=== PATIENT | male | born 1945 | race Caucasian/White ===

== ENCOUNTER 2018-10-15 03:09 | Emergency (ER) | payer OTHER ==
[~2018-10-15] VITALS: Ht 188 cm; Wt 80.3 kg
[2018-10-15 03:15] VITALS: BP 138/80
--- NOTE | 2018-10-15 03:15 | NUR ---
ED Nurse Note: Patient brought in by ambulance complaining of wounds, alida states that this has been an on going issue for the past 10 years, patient presents with 3 wounds, 1 on the lower right buttocks, 1 on the left lower buttocks, and one beneath his scrotum, the wounds are skin tears and is non draining. patient reports of 7/10 pain. patient is alert and oriented x4, ambulatory with a steady gait, VSS
--- NOTE | 2018-10-15 03:28 | Emergency Room Report ---
History of Present Illness General Chief Complaint: Wound Recheck/Suture Removal Source: Patient Present Illness HPI Patient is a 73-year-old male presented after increased discomfort to his perineal area. 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 Patient reports having increased discomfort and itchiness to the area. Patient had not been having any fever. He denies any other current complaints. Patient has not been febrile. He is normally followed at the [facility]. Patient presented by EMS. He denies any difficulty with breathing. Allergies: Coded Allergies: No Known Allergies (Unverified , 10/15/18) Patient History Past Medical History: see triage record Reviewed Nursing Documentation: PMH: Agreed; PSxH: Agreed Nursing Documentation-PMH Hx Neurological Problems: Yes - celluitis Review of Systems All Other Systems: negative except mentioned in HPI Physical Exam Vital Signs Date Time Temp Pulse Resp B/P (MAP) Pulse Ox O2 Delivery O2 Flow Rate FiO2 10/15/18 03:12 98.8 74 18 94 Room Air Sp02 EP Interpretation: reviewed, normal General Appearance: normal inspection, well appearing, alert, GCS 15, Chronically Ill Head: atraumatic ENT: normal ENT inspection, hearing grossly normal, normal voice Neck: normal inspection, full range of motion, supple, no bony tend Respiratory: normal inspection, lungs clear, normal breath sounds, no respiratory distress, no retraction, no wheezing Cardiovascular #1: regular rate, rhythm, no edema Gastrointestinal: normal inspection, normal bowel sounds, non tender, soft, no guarding, no hernia Genitourinary: no CVA tenderness Musculoskeletal: normal inspection, back normal, normal range of motion Neurologic: normal inspection, alert, oriented x3, responsive, 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 Germain, the Treating physician, has assessed whether the patient is alert and oriented to person, place and time and has determined that the patient is clinically stable for discharge. Diagnostic Impression: Primary Impression: Decubitus ulcer ER Course . Patient presented for wound check. Differential diagnosis include was not limited to cellulitis, abscess, among others. Patient has a benign exam and does not appear to require any further imaging or laboratory testing at this time. 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 Patient's wounds were irrigated and dressed with bacitracin ointment. He was given prescription for Keflex. Patient's wound did not appear to be definitely infected however given the open nature of the wounds patient's antibiotic prophylaxis seems reasonable. There is no significant bleeding noted. Patient was well-developed advised to follow- up with his primary care physician for recheck of the wound patient will likely require further evaluation and treatment. Last Vital Signs Date Time Temp Pulse Resp B/P (MAP) Pulse Ox O2 Delivery O2 Flow Rate FiO2 10/15/18 03:12 98.8 74 18 94 Room Air Status: improved Disposition: HOME, SELF-CARE Condition: Stable Scripts Cephalexin* (KEFLEX*) 500 Mg Capsule 500 MG ORAL EVERY 6 HOURS, #28 CAP Prov: Lawrence Germain MD 10/15/18 Bacitracin Zinc* (BACITRACIN ZINC*) 1 Each Packet 1 APPLIC TOPIC THREE TIMES A DAY, #30 PACKET Prov: Lawrence Germain MD 10/15/18 Lawrence Germain MD October 15, 2018 03:28
[2018-10-15] MEDS ORDERED: Bacitracin Oint UD TOPIC ONE ×2 (03:30→04:13)
[2018-10-15] MEDS ORDERED: BACITRACIN ZIN1 EACH TOPIC (03:49)
[2018-10-15] MEDS ORDERED: CEPHALEXIN500 MG ORAL (03:49)
--- NOTE | 2018-10-15 04:00 | NUR ---
Homeless Discharge: Patient is being discharged from medical care. Awake, alert and oriented x4. After care instructions, including referral to community resources were given. Patient verbalized understanding of After care instructions; at this time patient does not request medications, equipment or placement. Patient signed patient consent in the medical record for patient destination upon discharge. All medical devices such as IV and ID band were removed. Patient ambulated out with all personal belongings with steady gait. Patient was given a sandwich and liquids to drink. patient was given 3 days supple of medications. Combination Man aware and notified of overridden medications due to no pharmacy at this time.
[2018-10-15] MEDS ORDERED: Cephalexin 500mg cap ONE (04:13)
[2018-10-15 04:31] VITALS: BP 142/82
[2018-10-16] MEDS ORDERED: BACITRACIN ZIN1 EACH TOPIC (07:31)
[2018-10-16] MEDS ORDERED: CEPHALEXIN500 MG ORAL (07:31)
== END 2018-10-15 04:00 | disposition home or self-care (01) ==
LOC: EDBD 03:09 → EMR 03:46
DX: L89.309 Pressure ulcer of unspecified buttock, unspecified stage (principal); L89.159 Pressure ulcer of sacral region, unspecified stage
CPT/HCPCS: 99282